=== PATIENT | female | born 1990 | race American Indian/Alaskan Native ===

== ENCOUNTER 2016-11-01 09:41 | Emergency (ER) | payer BC ==
[2016-11-01 10:25] VITALS: TEMP 98.1
[2016-11-01 10:46] LABS: ADD MANUAL DIFF? NO
[2016-11-01 10:50] LABS: BASO # 0.02 K/mm3 (0.0-2.0); BASO % 0.2 % (0.0-3.0); EOS # 0.2 (0.0-0.7); EOS % 2.4 % (1.5-5.0); GRAN # 7.08 (1.4-6.5); GRAN % 73.6 % (50.0-68.0); LYMPH # 1.6 (1.2-3.4); MEAN CELL VOLUME 81.6 fL (80.0-105.0); MEAN CORPUSCULAR HEMOGLOBIN 26.3 pg (25.0-35.0); MEAN CORPUSCULAR HGB CONC 32.3 g/dl (31.0-37.0); MEAN PLATELET VOLUME 9.3 fl (7.0-11.0); MONO # 0.7 (0.1-0.6); MONO % 6.8 % (1.0-6.0); PLATELET COUNT 271 10^3/uL (120.0-450.0); RED CELL DISTRIBUTION WIDTH 15.3 % (11.5-14.5); WHITE BLOOD COUNT 9.6 10^3/ul (4.5-11.0)
[2016-11-01 10:51] LABS: URINE APPEARANCE SL CLOUDY (CLEAR); URINE BILIRUBIN NEGATIVE (NEGATIVE); URINE BLOOD TRACE-INTACT (NEGATIVE); URINE COLOR YELLOW (YELLOW); URINE GLUCOSE (UA) NEGATIVE (NEGATIVE); URINE KETONE TRACE mg/dL (NEGATIVE); URINE LEUKOCYTE ESTERASE MODERATE Leu/uL (NEGATIVE); URINE PROTEIN NEGATIVE mg/dL (<30 mg/dL); URINE UROBILINOGEN 0.2 E.U./dL (<1 E.U./dL)
[2016-11-01 11:00] LABS: ALB/GLOB RATIO 0.9 (1.1-1.8); ALKALINE PHOSPHATASE 59 U/L (38-133); ALT/SGPT 39 U/L (7-56); AST/SGOT 33 U/L (15-39); BILIRUBIN,TOTAL 0.4 mg/dL (0.2-1.3); BLOOD UREA NITROGEN 9 mg/dL (7-21); CALCIUM 9.1 mg/dL (8.4-10.5); CARBON DIOXIDE 22 mmol/L (21-33); CHLORIDE 107 mmol/L (98-107); GFR AFRICAN-AMERICAN > 60; GLUCOSE,RANDOM 102 mg/dL (70-110); POTASSIUM 3.8 mmol/L (3.6-5.0); SODIUM 137 mmol/L (132-148); TOTAL PROTEIN 6.9 g/dL (5.8-8.3)
[2016-11-01 11:11] LABS: URINE RBC 0 - 2 /hpf (0-2)
[2016-11-01 11:12] LABS: URINE BACTERIA FEW (NEG)
[2016-11-01 11:51] VITALS: RESP 18
--- NOTE | 2016-11-01 13:10 | US ---
PROCEDURE: HISTORY: 18 wks preg, vag spotting COMPARISON: TECHNIQUE: FINDINGS: There is a single live intrauterine fetus in anterior placenta with variable presentation. heart motion is observed at 150 beats per minute. biometric measurements demonstrates the BPD measures 18 weeks. Amniotic fluid appears to be within normal limits. IMPRESSION: Single live intrauterine fetus with a mean gestational age of roughly 18 weeks. Recommend anatomic survey in the 2nd trimester.
--- NOTE | 2016-11-01 13:27 | ED PDOC ---
Arrival/HPI - General Chief Complaint: Female Genitourinary Time Seen by Provider: 11/01/16 09:57 Historian: Patient - History of Present Illness Narrative History of Present Illness (Text): 11/01/16 14:41 Patient reports 1 week history of vaginal spotting, with mild lower abdominal crampy pain. Otherwise: (-) N/V, (-) fever, (-) urinary symptoms, (-) prior salpingitis, (+) h/o miscarriage at 7 weeks. Has (+) care and (+) prior OB ultrasound. 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 Para 0 AB 1 OB R Amezquita Past Medical History - Provider Review Nursing Documentation Reviewed: Yes - Infectious Disease Hx of Infectious Diseases: None - Reproductive Menopause: No - Cardiac Hx Cardiac Disorders: No - Pulmonary Hx Respiratory Disorders: No - Neurological Hx Neurological Disorder: No - HEENT Hx HEENT Disorder: No - Renal Hx Renal Disorder: No - Endocrine/Metabolic Hx Endocrine Disorders: No - Hematological/Oncological Hx Blood Disorders: No - Integumentary Hx Dermatological Disorder: No - Musculoskeletal/Rheumatological Hx Musculoskeletal Disorders: No - Gastrointestinal Hx Gastrointestinal Disorders: No - Genitourinary/Gynecological Hx Genitourinary Disorders: No - Psychiatric Hx Psychophysiologic Disorder: No Hx Substance Use: No - Anesthesia Hx Anesthesia: No Family/Social History - Physician Review Nursing Documentation Reviewed: Yes Family/Social History: No Known Family HX Smoking Status: Never Smoked Hx Alcohol Use: No Hx Substance Use: No Allergies/Home Meds Allergies/Adverse Reactions: Allergies No Known Allergies Allergy (Verified 11/01/16 10:27) Review of Systems - Review of Systems Constitutional: Normal. absent: Fatigue, Weight Change Respiratory: Normal. absent: SOB, Cough Cardiovascular: Normal. absent: Chest Pain, Palpitations Gastrointestinal: Normal, Abdominal Pain. absent: Stool Changes Genitourinary Female: Normal. absent: Dysuria, Frequency Musculoskeletal: Normal. absent: Arthralgias, Back Pain Skin: Normal. absent: Rash, Pruritis Physical Exam - Physical Exam Narrative Physical Exam (Text): 11/01/16 14:43 GENERAL APPEARANCE: Patient is awake, alert, oriented x 3, in no acute distress. SKIN: Warm, dry; (-) cyanosis. EYES: (-) conjunctival pallor. ENMT: Mucous membranes moist. NECK: (-) tenderness, (-) stiffness, (-) lymphadenopathy. CHEST AND RESPIRATORY: (-) rales, (-) rhonchi, (-) wheezes; breath sounds equal bilaterally. HEART AND CARDIOVASCULAR: (-) irregularity; (-) murmur, (-) gallop. ABDOMEN AND GI: Soft; (-) tenderness. EXTREMITIES: (-) deformity. NEURO AND PSYCH: Mental status as above; (-) focal findings. Vital Signs Temp Pulse Resp BP Pulse Ox 11/01/16 13:38 75 18 130/70 100 11/01/16 11:51 86 18 123/68 99 11/01/16 10:25 98.1 F 92 H 16 125/72 99 11/01/16 10:11 98.1 F 92 H 18 125/72 99 11/01/16 10:04 98.2 F 86 18 121/68 98 Medical Decision Making ED Course and Treatment: 11/01/16 13:25 26 yo F c/o vaginal spotting with mild lower abd crampy pain. PE otherwise normal. Plan: -- Labs -- Urinalysis -- ED observation / reassess / disposition -- US pelvic OB - Lab Interpretations Lab Results: 11/01/16 10:30 11/01/16 10:30 Lab Results 11/01/16 11:39: Blood Type Confirm B POSITIVE 11/01/16 10:50: Blood Type B POSITIVE, Antibody Screen Negative, BBK History Checked No verified bt 11/01/16 10:30: WBC 9.6, RBC 3.80, Hgb 10.0 L, Hct 31.0 L, MCV 81.6, MCH 26.3, MCHC 32.3, RDW 15.3 H, Plt Count 271, MPV 9.3, Gran % 73.6 H, Lymph % (Auto) 17.0 L, [place] % (Auto) 6.8 H, Eos % (Auto) 2.4, Baso % (Auto) 0.2, Gran # 7.08 H , Lymph # 1.6, [place] # 0.7 H, Eos # 0.2, Baso # 0.02, Sodium 137, Potassium 3.8, Chloride 107, Carbon Dioxide 22, Anion Gap 12, BUN 9, Creatinine 0.5, Est GFR ( Amer) > 60, Est GFR (Non-Af Amer) > 60, Random Glucose 102, Calcium 9.1 , Total Bilirubin 0.4, AST 33, ALT 39, Alkaline Phosphatase 59, Total Protein 6.9, Albumin 3.3, Globulin 3.6, Albumin/Globulin Ratio 0.9 L, Beta HCG, Quant 48068.00 H, Urine Color Yellow, Urine Appearance Sl cloudy, Urine pH 6.0, Ur Specific [place] 1.025, Urine Protein Negative, Urine Glucose (UA) Negative, Urine Ketones Trace H, Urine Blood Trace-intact H, Urine Nitrate Negative, Urine Bilirubin Negative, Urine Urobilinogen 0.2, Ur Leukocyte Esterase Moderate H, Urine RBC 0 - 2, Urine WBC 5 - 10, Ur Epithelial Cells 4 - 5, Urine Bacteria Few I have reviewed the lab results: Yes (Pt noted to have a UTI) - RAD Interpretation Narrative RAD Interpretations (Text): 11/01/16 13:24 US pelvis OB: FINDINGS: There is a single live intrauterine fetus in anterior placenta with variable presentation. heart motion is observed at 150 beats per minute. biometric measurements demonstrates the BPD measures 18 weeks. Amniotic fluid appears to be within normal limits. IMPRESSION: Single live intrauterine fetus with a mean gestational age of roughly 18 weeks. Recommend anatomic survey in the 2nd trimester. Radiology Orders: 11/01/16 10:36 AGE [US] Stat ED OBSERVATION Date of observation admission: 11/01/16 Time of observation admission: 10:35 - Observation admission statement Patient is being placed in observation because:: To obtain US and for reassessment of symptoms. - Goals of Observation Goals of observation are:: To observe patient's signs and symptoms. - Progress Note Progress Note: 11/01/16 12:00 Labs results reviewed and discussed with the patient in great detail. UA shows ( +) UTI. Beta quant and type & screen still pending. US results still pending at this time. Patient has no other complaints. PE is unchanged. 11/01/16 13:27 US pelvic : Single live intrauterine fetus with a mean gestational age of roughly 18 weeks. Recommend anatomic survey in the 2nd trimester. US results reviewed with the patient and with family. On re-evaluation, patient is resting comfortably in bed in no acute distress. Reports no increase in vaginal spotting or abdominal pain. On exam, abdomen remains soft with no tenderness. Based on history, exam and diagnostic results plan will be for outpatient follow up. Patient states she fully agrees with and understands discharge instructions. States that she agrees with the plan and disposition. Verbalized and repeated discharge instructions and plan. I have given the patient opportunity to ask any additional questions. Follow up with OB in 1-2 days without fail. Advised to take medication as prescribed. Return to the emergency room at any time for any new or worsening symptoms. - PA / [employer] / Resident Statement MD/DO has reviewed & agrees with the documentation as recorded. Disposition/Present on Arrival - Present on Arrival Any Indicators Present on Arrival: No History of DVT/PE: No History of Uncontrolled Diabetes: No Urinary Catheter: No History of Decub. Ulcer: No History Surgical Site Infection Following: None - Disposition Have Diagnosis and Disposition been Completed?: Yes Diagnosis: Threatened , UTI (urinary tract infection) Disposition: HOME/ ROUTINE Disposition Time: 10:35 (Patient placed in ED observation) Patient Plan: Discharge Condition: STABLE Discharge Instructions (ExitCare): Threatened Miscarriage (ED), Urinary Tract Infection in Women (ED) Print Language: KINYARWANDA Additional Instructions: Thank you for letting us take care of you today. You were treated for threatened miscarriage, UTI. The emergency medical care you received today was directed at your acute symptoms. If you were prescribed any medication, please fill it and take as directed. It may take several days for your symptoms to resolve. Return to the Emergency Department if your symptoms worsen, do not improve, or if you have any other problems. Please contact your doctor in 2 days for re-evaluation and follow up. Bring any paperwork you were given at discharge with you along with any medications you are taking to your follow up visit. Our treatment cannot replace ongoing medical care by a primary care provider (PCP) outside of the emergency department. Thank you for allowing the [facility] team to be part of your care today. Prescriptions: Nitrofurantoin Macrocrystals [Macrobid] 100 mg PO BID #20 cap Referrals: Doris Amezquita MD [Primary Care Provider] - Follow up with primary
[2016-11-01 13:39] VITALS: BP 130/70; PULSE 75; O2SAT 100
== END 2016-11-01 13:38 | disposition home or self-care (01) ==
LOC: ED 09:41
DX: O20.0 Threatened abortion (principal); O23.41 Unspecified infection of urinary tract in pregnancy, first trimester; Z3A.01 Less than 8 weeks gestation of pregnancy

== ENCOUNTER 2018-03-24 18:12 | Inpatient (IN) | payer BC, OTHER ==
[2018-03-24 18:26] VITALS: BMI 43.3
--- NOTE | 2018-03-24 18:55 | ED PDOC ---
Arrival/HPI - General Chief Complaint: Abdominal Pain Time Seen by Provider: 03/24/18 18:34 Historian: Patient - History of Present Illness Narrative History of Present Illness (Text): 03/24/18 18:55 28 year old female who presents to the Emergency department complaining of abdominal pain. Patient reports having persistent, sharp abdominal pain, which started 1am this morning while she was sleeping. Patient states that initially her abdominal pain was right sided but has since become worse in the epigastric area. Prior to the pain she ate dinner at 19:00. Patient hasn't taken anything for her pain. She has normal bowel movements and denies any blood in her stool. Her last menstrual period ended a week ago. Patient reports that a few moments ago she found small amount of blood in her urine. Patient reports having a slight yellow vaginal discharge which is her norm. She admits to being sexually active within the past 6 months but not the past month. She doesn't think she has been exposed to any STD. of note last year she had a but no other surgeries. Patient denies fevers, chills, cough, shortness of breath, chest pain , dyspnea on exertion, nausea, vomiting, diarrhea, back pain, neck pain, headache, dizziness, or any other complaint. She also denies any recent EtOH ingestion. Time/Duration: Other (Today) Symptom Onset: Sudden Symptom Course: Unchanged Quality: Stabbing Activities at Onset: Sleeping Context: Home Past Medical History - Infectious Disease Hx of Infectious Diseases: None - Cardiac Hx Cardiac Disorders: No Hx Hypertension: No - Pulmonary Hx Respiratory Disorders: No - Neurological Hx Neurological Disorder: No - HEENT Hx HEENT Disorder: No - Renal Hx Renal Disorder: No - Endocrine/Metabolic Hx Endocrine Disorders: No - Hematological/Oncological Hx Blood Disorders: No - Integumentary Hx Dermatological Disorder: No - Musculoskeletal/Rheumatological Hx Musculoskeletal Disorders: No - Gastrointestinal Hx Gastrointestinal Disorders: No - Genitourinary/Gynecological Hx Genitourinary Disorders: No - Psychiatric Hx Depression: No Hx Substance Use: No - Surgical History Hx Section: Yes (x1) - Anesthesia Hx Anesthesia: No Family/Social History Smoking Status: Never Smoked Hx Alcohol Use: No Hx Substance Use: No Allergies/Home Meds Allergies/Adverse Reactions: Allergies banana Allergy (Verified 03/24/18 18:27) ITCHING Home Medications: Home Meds Medication Instructions Recorded Confirmed No Known Home Med 03/24/18 03/24/18 Physical Exam Vital Signs Reviewed: Yes Vital Signs Temp Pulse Resp BP Pulse Ox 03/24/18 21:39 75 18 113/73 97 03/24/18 20:13 78 18 115/75 97 03/24/18 18:29 98.2 F 84 18 117/80 97 Temperature: Afebrile Blood Pressure: Normal Pulse: Regular Respiratory Rate: Normal Appearance: Positive for: Well-Appearing Mental Status: Positive for: Alert and Oriented X 3 - Systems Exam Head: Present: Atraumatic, Normocephalic Pupils: Present: PERRL Extroacular Muscles: Present: EOMI Conjunctiva: Present: Normal Mouth: Present: Moist Mucous Membranes Neck: Present: Normal Range of Motion Respiratory/Chest: Present: Clear to Auscultation, Good Air Exchange. No: Respiratory Distress, Accessory Muscle Use Cardiovascular: Present: Regular Rate and Rhythm, Normal S1, S2. No: Murmurs Abdomen: Present: Tenderness (Epigastric, periumbilical, and RLQ tenderness). No: Distention, Peritoneal Signs Back: Present: Normal Inspection Upper Extremity: Present: Normal Inspection. No: Cyanosis, Edema Lower Extremity: Present: Normal Inspection. No: Edema Neurological: Present: GCS=15, CN II-XII Intact, Speech Normal Skin: Present: Warm, Dry, Normal Color. No: Rashes Psychiatric: Present: Alert, Oriented x 3, Normal Insight, Normal Concentration Medical Decision Making ED Course and Treatment: 03/24/18 18:55 Impression: 28 year old female who presents to the Emergency department complaining of sharp and persistent epigastric abdominal, which started 1am this morning. Differential Diagnosis included but are not limited to: Plan: -- Abdominal and Pelvic CT with IV contrast -- Labs -- Blood work -- Toradol -- Reglan -- Urinalysis -- Reassess and disposition Prior Visits: Notes and results from previous visits were reviewed. Progress Notes: 03/24/18 21:10 CT of abdomen and pelvis showed appendicitis 03/24/18 21:14 Discussed case with certified ophthalmic surgical assistant, who will come to evaluate patient. 03/24/18 22:08 Discussed plan with surgery resident, who will speak to her attending . Requests medical admission. 03/24/18 22:10 Discussed case with , who accepts patient under hospitalist service. - Lab Interpretations Lab Results: 03/24/18 19:18 03/24/18 19:18 Lab Results 03/24/18 19:18: PT 12.7 H, INR 1.11, APTT 23.7 L 03/24/18 19:18: WBC 8.1, RBC 4.12, Hgb 10.0 L, Hct 32.2 L, MCV 78.2 L, MCH 24.3 L, MCHC 31.1, RDW 15.3 H, Plt Count 332, MPV 9.6, Gran % 58.8, Lymph % (Auto) 30.6, [place] % (Auto) 7.2 H, Eos % (Auto) 2.9, Baso % (Auto) 0.5, Gran # 4.75, Lymph # (Auto) 2.5, [place] # (Auto) 0.6, Eos # (Auto) 0.2, Baso # (Auto) 0.04 03/24/18 19:18: Sodium 144, Potassium 3.8, Chloride 109 H, Carbon Dioxide 26, Anion Gap 13, BUN 9, Creatinine 0.6 L, Est GFR ( Amer) > 60, Est GFR (Non -Af Amer) > 60, Random Glucose 94, Calcium 9.1, Total Bilirubin 0.4, AST 18, ALT 16, Alkaline Phosphatase 70, Total Protein 7.4, Albumin 4.0, Globulin 3.4, Albumin/Globulin Ratio 1.2, Lipase 90 03/24/18 18:37: Urine Color Yellow, Urine Appearance Clear, Urine pH 6.0, Ur Specific [place] 1.015, Urine Protein Negative, Urine Glucose (UA) Negative, Urine Ketones Negative, Urine Blood Negative, Urine Nitrate Negative, Urine Bilirubin Negative, Urine Urobilinogen 1.0 H, Ur Leukocyte Esterase Trace H, Urine RBC 0 - 2, Urine WBC 2 - 5, Ur Epithelial Cells 6 - 8, Urine Bacteria Many , Urine Other Uyeast I have reviewed the lab results: Yes - RAD Interpretation Narrative RAD Interpretations (Text): 03/24/18 CT Abdomen and Pelvis With Intravenous Contrast: IMPRESSION: Right lower quadrant findings equivocal for possible early tip appendicitis. Please correlate withpatient's symptoms and laboratory values. Dictated and Authenticated by: North Connor MD Radiology Orders: 03/24/18 19:04 ABDOMEN & PELVIS [ABD & PELVIS IV CONTRAST ONLY] [CT] Stat Solo Musician: Radiologist - Medication Orders Current Medication Orders: Discontinued Medications Metoclopramide HCl 10 mg/ (Sodium Chloride) 52 mls @ 200 mls/hr IV STAT STA Stop: 03/24/18 19:20 Last Admin: 03/24/18 19:32 Dose: Not Given Non-Admin Reason: Patient Refused Ceftriaxone Sodium (Rocephin 1 Gram Ivpb) 1 gm in 100 mls @ 100 mls/hr IVPB STAT STA PRN Reason: Protocol Stop: 03/24/18 21:41 Last Admin: 03/24/18 20:53 Dose: 100 mls/hr eMAR Start Stop Document 03/24/18 20:53 JORGE (Rec: 03/24/18 20:53 JORGE [id number]) Intravenous Solution Start Date 03/24/18 Start Time 20:53 End Date 03/24/18 Ketorolac Tromethamine (Toradol) 30 mg IVP STAT STA Stop: 03/24/18 19:38 Last Admin: 03/24/18 20:04 Dose: 30 mg MAR Pain Assessment Document 03/24/18 20:04 JORGE (Rec: 03/24/18 20:04 JORGE [id number]) Pain Reassessment Is this a pain reassessment? Yes Presence of Pain Presence of Pain Yes Pain Scale Used Pain Scale Used Numeric Location Pain Location Body Site Abdomen Description Intensity of Pain at present 8 IVP Administration Document 03/24/18 20:04 JORGE (Rec: 03/24/18 20:04 JORGE [id number]) Charges for Administration # of IVP Administrations 1 - Scribe Statement The provider has reviewed the documentation as recorded by the Scribadrian Tamez Provider Scribe Attestation: All medical record entries made by the Scribe were at my direction and personally dictated by me. I have reviewed the chart and agree that the record accurately reflects my personal performance of the history, physical exam, medical decision making, and the department course for this patient. I have also personally directed, reviewed, and agree with the discharge instructions and disposition. Disposition/Present on Arrival - Present on Arrival History of DVT/PE: No History of Uncontrolled Diabetes: No Urinary Catheter: No History of Decub. Ulcer: No History Surgical Site Infection Following: None - Disposition Forms: [employer] (Nigerian)
[2018-03-24 19:36] LABS: BASO # 0.04 K/mm3 (0.0-2.0); BASO % 0.5 % (0.0-3.0); EOS # 0.2 (0.0-0.7); EOS % 2.9 % (1.5-5.0); GRAN # 4.75 (1.4-6.5); GRAN % 58.8 % (50.0-68.0); LYMPH # 2.5 (1.2-3.4); LYMPH % 30.6 % (22.0-35.0); MEAN CELL VOLUME 78.2 fl (80.0-105.0); MEAN CORPUSCULAR HEMOGLOBIN 24.3 pg (25.0-35.0); MEAN CORPUSCULAR HGB CONC 31.1 g/dl (31.0-37.0); MEAN PLATELET VOLUME 9.6 fl (7.0-11.0); MONO # 0.6 (0.1-0.6); MONO % 7.2 % (1.0-6.0); RBC 4.12 10^6/uL (3.5-6.1); RED CELL DISTRIBUTION WIDTH 15.3 % (11.5-14.5); WHITE BLOOD COUNT 8.1 10^3/ul (4.5-11.0)
[2018-03-24 19:39] LABS: ALB/GLOB RATIO 1.2 (1.1-1.8); ALT/SGPT 16 U/L (7-56); AST/SGOT 18 U/L (14-36); BLOOD UREA NITROGEN 9 mg/dL (7-21); CALCIUM 9.1 mg/dL (8.4-10.5); GFR NON-AFRICAN AMERICAN > 60; LIPASE 90 U/L (23-300)
[2018-03-24 19:41] LABS: INR 1.11; PARTIAL THROMBOPLASTIN TIME 23.7 Seconds (25.1-36.5); PROTHROMBIN TIME 12.7 SECONDS (9.4-12.5)
[2018-03-24 19:42] LABS: URINE BILIRUBIN NEGATIVE (NEGATIVE); URINE BLOOD NEGATIVE (NEGATIVE); URINE GLUCOSE (UA) NEGATIVE (NEGATIVE); URINE LEUKOCYTE ESTERASE TRACE Leu/uL (NEGATIVE); URINE PROTEIN NEGATIVE mg/dL (<30 mg/dL)
[2018-03-24 19:55] LABS: URINE APPEARANCE CLEAR (CLEAR); URINE COLOR YELLOW (YELLOW)
[2018-03-24 19:57] LABS: URINE BACTERIA MANY (NEG); URINE RBC 0 - 2 /hpf (0-2)
[2018-03-24] MEDS ORDERED: cefTRIAXone 1 gm 1 GM/100 ML BAG IVPB STA (20:42)
--- NOTE | 2018-03-24 22:40 | CP.PCM.CON ---
History of Present Illness - History of Present Illness History of Present Illness: General Surgery Consult Note for Dr. Olivares 28F, no significant past medical history, presents to the ED with sudden onset abdominal pain. Patient was seen and evaluated in the ED. States the pain started last night when it woke her up from her sleep at 1 am. Initially rated as 10/10 dull pain in the lower abdomen. Today pain has progressively sharpened and localized to the periumbilical region. The pain does not radiate. It is constant, currently a 6/10 with pain medication. Lying down alleviates her symptoms. Pressure or palpation in the right lower quadrant aggravates her symptoms. She denies fever, chills, nausea, vomiting, dysuria, chest pain, palpitations, shortness of breath, cough, headache, dizziness. PMH: none PSH: x1 2016 ALL: bananas Soc: Denies tobacco, alcohol, or drug use. Currently sexually active with multiple partners and occasionally uses protection (condoms). No OCP use because did not like the side effects. History of chlamydia in 2010 treated with antibiotics. Review of Systems - Constitutional Constitutional: absent: Chills, Fever, Weight Loss - EENT Eyes: absent: Blurred Vision, Change in Vision Ears: absent: Ear Discharge, Ear Pain Nose/Mouth/Throat: absent: Nasal Congestion, Nasal Discharge - Cardiovascular Cardiovascular: absent: Chest Pain, Dyspnea - Respiratory Respiratory: absent: Cough, Dyspnea - Gastrointestinal Gastrointestinal: Abdominal Pain. absent: Constipation, Nausea, Vomiting - Genitourinary Genitourinary: absent: Difficulty Urinating, Dysuria - Musculoskeletal Musculoskeletal: absent: Back Pain, Neck Pain - Integumentary Integumentary: absent: Bleeding Lesions, Changing Lesions - Neurological Neurological: absent: Confusion, Dizziness, Headaches - Psychiatric Psychiatric: absent: Anxiety, Depression Past Patient History - Infectious Disease Hx of Infectious Diseases: None - Past Social History Smoking Status: Never Smoked - CARDIAC Hx Cardiac Disorders: No Hx Hypertension: No - PULMONARY Hx Respiratory Disorders: No - NEUROLOGICAL Hx Neurological Disorder: No - HEENT Hx HEENT Problems: No - RENAL Hx Chronic Kidney Disease: No - ENDOCRINE/METABOLIC Hx Endocrine Disorders: No - HEMATOLOGICAL/ONCOLOGICAL Hx Blood Disorders: No - INTEGUMENTARY Hx Dermatological Problems: No - MUSCULOSKELETAL/RHEUMATOLOGICAL Hx Musculoskeletal Disorders: No - GASTROINTESTINAL Hx Gastrointestinal Disorders: No - GENITOURINARY/GYNECOLOGICAL Hx Genitourinary Disorders: No - PSYCHIATRIC Hx Depression: No Hx Substance Use: No - SURGICAL HISTORY Hx Section: Yes (x1) - ANESTHESIA Hx Anesthesia: No Meds Allergies/Adverse Reactions: Allergies Allergy/AdvReac Type Severity Reaction Status Date / Time banana Allergy ITCHING Verified 03/24/18 18:27 Physical Exam - Constitutional Appears: Well, Non-toxic, No Acute Distress Additional comments: obese - Head Exam Head Exam: ATRAUMATIC, NORMAL INSPECTION, NORMOCEPHALIC - Eye Exam Eye Exam: EOMI, PERRL - ENT Exam ENT Exam: Mucous Membranes Moist, Normal Exam - Respiratory Exam Respiratory Exam: Clear to Auscultation Bilateral, NORMAL BREATHING PATTERN - Cardiovascular Exam Cardiovascular Exam: REGULAR RHYTHM, +S1, +S2. absent: Systolic Murmur - GI/Abdominal Exam GI & Abdominal Exam: Normal Bowel Sounds, Soft, Tenderness. absent: Distended, Guarding, Rebound - Neurological Exam Neurological exam: Alert, Oriented x3 - Psychiatric Exam Psychiatric exam: Normal Affect, Normal Mood Results - Vital Signs Recent Vital Signs: Last Vital Signs Temp 98.2 F 03/24/18 18:29 Pulse 75 03/24/18 21:39 Resp 18 03/24/18 21:39 BP 113/73 03/24/18 21:39 Pulse Ox 97 03/24/18 21:39 - Labs Result Diagrams: 03/24/18 19:18 03/24/18 19:18 Labs: Laboratory Results - last 24 hr 03/24/18 03/24/18 03/24/18 18:37 19:18 19:18 WBC 8.1 RBC 4.12 Hgb 10.0 L Hct 32.2 L MCV 78.2 L MCH 24.3 L MCHC 31.1 RDW 15.3 H Plt Count 332 MPV 9.6 Gran % 58.8 Lymph % (Auto) 30.6 [place] % (Auto) 7.2 H Eos % (Auto) 2.9 Baso % (Auto) 0.5 Gran # 4.75 Lymph # (Auto) 2.5 [place] # (Auto) 0.6 Eos # (Auto) 0.2 Baso # (Auto) 0.04 PT INR APTT Sodium 144 Potassium 3.8 Chloride 109 H Carbon Dioxide 26 Anion Gap 13 BUN 9 Creatinine 0.6 L Est GFR ( Amer) > 60 Est GFR (Non-Af Amer) > 60 Random Glucose 94 Calcium 9.1 Total Bilirubin 0.4 AST 18 ALT 16 Alkaline Phosphatase 70 Total Protein 7.4 Albumin 4.0 Globulin 3.4 Albumin/Globulin Ratio 1.2 Lipase 90 Urine Color Yellow Urine Appearance Clear Urine pH 6.0 Ur Specific [place] 1.015 Urine Protein Negative Urine Glucose (UA) Negative Urine Ketones Negative Urine Blood Negative Urine Nitrate Negative Urine Bilirubin Negative Urine Urobilinogen 1.0 H Ur Leukocyte Esterase Trace H Urine RBC 0 - 2 Urine WBC 2 - 5 Ur Epithelial Cells 6 - 8 Urine Bacteria Many Urine Other Uyeast 03/24/18 19:18 WBC RBC Hgb Hct MCV MCH MCHC RDW Plt Count MPV Gran % Lymph % (Auto) [place] % (Auto) Eos % (Auto) Baso % (Auto) Gran # Lymph # (Auto) [place] # (Auto) Eos # (Auto) Baso # (Auto) PT 12.7 H INR 1.11 APTT 23.7 L Sodium Potassium Chloride Carbon Dioxide Anion Gap BUN Creatinine Est GFR ( Amer) Est GFR (Non-Af Amer) Random Glucose Calcium Total Bilirubin AST ALT Alkaline Phosphatase Total Protein Albumin Globulin Albumin/Globulin Ratio Lipase Urine Color Urine Appearance Urine pH Ur Specific [place] Urine Protein Urine Glucose (UA) Urine Ketones Urine Blood Urine Nitrate Urine Bilirubin Urine Urobilinogen Ur Leukocyte Esterase Urine RBC Urine WBC Ur Epithelial Cells Urine Bacteria Urine Other Assessment & Plan - Assessment and Plan (Free Text) Assessment: 28F, presents to ED with periumbilical pain. Preliminary CT report states possible early appendicitis. Plan: - IV fluids - IV Antibiotics - NPO - Pain control - Anti-emetics - AM labs - Continue to monitor vital signs - Discussed with Dr. Olivares, further recommendations to follow Supa Mcgarry PGY1
[2018-03-24] MEDS ORDERED: Morphine 2 mg/ml ISec IVP PRN (22:45)
[2018-03-24] MEDS ORDERED: Morphine 4 mg/ml ISec IVP PRN (22:47)
[2018-03-24] MEDS ORDERED: Lactated Ringer's 1,000 ML IV SCH (23:00)
[2018-03-24] MEDS: cefOXitin Sodium 1 GM in Sodium Chloride 0.9% 100 ML IV SCH (23:21)
[2018-03-25 01:41] VITALS: RESP 20
[2018-03-25] MEDS ORDERED: Pneumococcal 23-Valent Vaccine IM ONE (01:41)
--- NOTE | 2018-03-25 02:05 | CP.PCM.HP ---
<Vasile Shkula - Last Filed: 03/25/18 02:24> History of Present Illness - History of Present Illness History of Present Illness: Vasile Shukla, PGY-1, Internal Medicine History and Physical for Dr. Carlos CC: abdominal pain 28 year old female with past medical history of hypoglycemia and chlamydia treated in 2010, presents with lower abdominal pain that started on 03/24 at 1 AM. Patient denies having this kind of pain in the past. The pain is a dull, epigastric pain that is constant and nonradiating. Patient reports pain was 10/ 10 when it started and is now 6/10. Exacerbating factors include pressure. No remitting factors. Patient denies nausea, vomiting, constipation, diarrhea, dysuria, hematuria, chest pain, heart palpitations, shortness of breath, numbness/tingling. LMP: March 20. Regular period with normal flow. Mild cramping with periods. Patient has had 3 sexual partners in the last year. PMH: as stated above PSH: FMHx: father has diabetes. mother has rheumatoid arthritis SHx: denies smoking or recreational drug use. Drinks 3-4 drinks once every few months Medications: denies PMD: denies Pharmacy: [facility] Insurance: denies Review of Systems - Constitutional Constitutional: absent: Anorexia, Chills, Fever - EENT Eyes: absent: Blurred Vision Ears: absent: Ear Pain, Abnormal Hearing - Cardiovascular Cardiovascular: absent: Chest Pain, Dyspnea, Dyspnea on Exertion - Respiratory Respiratory: absent: Cough, Dyspnea - Gastrointestinal Gastrointestinal: Abdominal Pain (epigastric). absent: Constipation, Diarrhea, Nausea, Vomiting - Genitourinary Genitourinary: absent: Dysuria, Hematuria - Reproductive: Female Reproductive:Female: Normal Menses - Menstruation Menstruation: Normal Menses - Musculoskeletal Musculoskeletal: absent: Abnormal Gait, Back Pain - Neurological Neurological: absent: Numbness, Tingling, Weakness - Psychiatric Psychiatric: absent: Anxiety, Depression Past Patient History - Infectious Disease Hx of Infectious Diseases: None - Past Social History Smoking Status: Never Smoked - CARDIAC Hx Cardiac Disorders: No Hx Hypertension: No - PULMONARY Hx Respiratory Disorders: No - NEUROLOGICAL Hx Neurological Disorder: No - HEENT Hx HEENT Problems: No - RENAL Hx Chronic Kidney Disease: No - ENDOCRINE/METABOLIC Hx Endocrine Disorders: No - HEMATOLOGICAL/ONCOLOGICAL Hx Blood Disorders: No - INTEGUMENTARY Hx Dermatological Problems: No - MUSCULOSKELETAL/RHEUMATOLOGICAL Hx Falls: No - GASTROINTESTINAL Hx Gastrointestinal Disorders: No - GENITOURINARY/GYNECOLOGICAL Hx Genitourinary Disorders: No - PSYCHIATRIC Hx Depression: No Hx Substance Use: No - SURGICAL HISTORY Hx Surgeries: Yes Other/Comment: - ANESTHESIA Hx Anesthesia: No Meds Allergies/Adverse Reactions: Allergies Allergy/AdvReac Type Severity Reaction Status Date / Time banana Allergy ITCHING Verified 03/24/18 18:27 Physical Exam - Constitutional Appears: Well, Non-toxic, No Acute Distress - Head Exam Head Exam: ATRAUMATIC, NORMOCEPHALIC - Eye Exam Eye Exam: EOMI, Normal appearance, PERRL Pupil Exam: NORMAL ACCOMODATION, PERRL - ENT Exam ENT Exam: Mucous Membranes Moist, Normal Exam - Neck Exam Neck exam: Positive for: Normal Inspection - Respiratory Exam Respiratory Exam: Clear to Auscultation Bilateral, NORMAL BREATHING PATTERN - Cardiovascular Exam Cardiovascular Exam: REGULAR RHYTHM - GI/Abdominal Exam GI & Abdominal Exam: Normal Bowel Sounds, Soft, Tenderness (epigastric pain. negative rovsing's sign, psoas, and obturator sign) - Extremities Exam Extremities exam: Positive for: normal inspection - Back Exam Back exam: NORMAL INSPECTION - Neurological Exam Neurological exam: Alert, CN II-XII Intact, Normal Gait, Oriented x3, Reflexes Normal - Psychiatric Exam Psychiatric exam: Normal Affect, Normal Mood - Skin Skin Exam: Dry, Intact, Normal Color, Warm Results - Vital Signs Recent Vital Signs: Last Vital Signs Temp 97.5 F L 03/25/18 01:33 Pulse 63 03/25/18 01:33 Resp 20 03/25/18 01:33 BP 123/60 03/25/18 01:33 Pulse Ox 98 03/24/18 22:56 - Labs Result Diagrams: 03/24/18 19:18 03/24/18 19:18 Assessment & Plan - Assessment and Plan (Free Text) Assessment: 28 year old female with past medical history of hypoglycemia and chlamydia treated in 2010, presents with lower abdominal pain that started on 03/24 at 1 AM. The pain is a dull, epigastric pain that is constant and nonradiating. Patient will be admitted for abdominal pain 2/2 to appendicitis vs. ovarian cyst. Plan: Abdominal pain 2/2 to appendicitis vs. ovarian cyst vs. UTI -Abdominal CT with IV contrast: Right lower quadrant findings equivocal for possible early tip appendicitis. The appendix is 6.5 mm proximally, and appears 8mm distally. The appendiceal wall more distally shows increased enhancement and a slightly thickened. There is mild periappendiceal tip inflammatory stranding. -UA: trace leukocyte esterase, many bacteria, 2-5 WBC, yeast present -WBC: 8.1 -Patient afebrile. -SIRS criteria not fulfilled. -Patient started on cefoxitin and flagyl for suspected appendicitis and to cover for UTI. -Acetaminophen 650 RC Q4PRN for fever>100.4 -Lactated ringer at 180 cc/hr -Zofran 4 mg PRN for nausea -Morphine 1 mg Q6PRN for pain -NPO -Surgery, Dr. Olivares, consulted for recommendations. Hyperchloremia -mildly elevated at 109. -Continue to monitor. Elevated PT/PTT -PT: 12.7/PTT:23.7 -LFTs are normal. -Continue to monitor. Microcytic Anemia -Hgb: 10.0 -Iron, ferritin, TIBC, Hgb electrophoresis ordered. -Continue to monitor and treat as necessary. DVT prophylaxis: SCD GI prophylaxis: protonix 40 mg daily Patient case discussed with Dr. Carlos. - Date & Time Date: 03/25/18 Time: 02:10 <Edith Carlos - Last Filed: 03/25/18 03:32> Present on Admission - Present on Admission Any Indicators Present on Admission: No History of DVT/PE: No History of Uncontrolled Diabetes: No Urinary Catheter: No Decubitus Ulcer Present: No History Surgical Site Infection Following: None Results - Vital Signs Recent Vital Signs: Last Vital Signs Temp 97.5 F L 03/25/18 01:33 Pulse 63 03/25/18 01:33 Resp 20 03/25/18 01:33 BP 123/60 03/25/18 01:33 Pulse Ox 98 03/24/18 22:56 - Labs Result Diagrams: 03/24/18 19:18 03/24/18 19:18 Attending/Attestation - Attestation I have personally seen and examined this patient.: Yes I have fully participated in the care of the patient.: Yes I have reviewed all pertinent clinical information: Yes Notes (Text): 03/25/18 03:29 Patient was seen when she was in -, ambulating from rest room to bed, not in acute distress. Medical record was reviewed. Agree with history, physical examination, assessment and plan. 28 year old obese woman comes in with complaints of periumbilical abdominal pain since last night, nausea, vomiting, constant , sharp, pain, no radiation, no history of similar pain, has PMH of epistaxis, seasonal allergies, x1, Chlamydia, UTI x 3, obesity , family history of DM,has possible Appendicitis,will be evaluated by surgery, IV antibiotics, NPO, IV hydration, analgesic, antiemetic,GI,DVT prophylaxis, repeat labs in AM.
[2018-03-25] MEDS: metroNIDAZOLE IV 500 mg/100 ml 500 MG/100 ML BAG IVPB SCH ×2 (05:49→14:22)
[2018-03-25 06:42] LABS: BASO # 0.03 K/mm3 (0.0-2.0); BASO % 0.5 % (0.0-3.0); EOS # 0.2 (0.0-0.7); EOS % 3.6 % (1.5-5.0); GRAN # 2.83 (1.4-6.5); GRAN % 50.7 % (50.0-68.0); HEMOGLOBIN 9.3 g/dL (12.0-16.0); LYMPH # 2.1 (1.2-3.4); LYMPH % 37.1 % (22.0-35.0); MEAN CELL VOLUME 78.2 fl (80.0-105.0); MEAN CORPUSCULAR HEMOGLOBIN 23.8 pg (25.0-35.0); MEAN CORPUSCULAR HGB CONC 30.5 g/dl (31.0-37.0); MEAN PLATELET VOLUME 9.3 fl (7.0-11.0); MONO # 0.5 (0.1-0.6); MONO % 8.1 % (1.0-6.0); RBC 3.9 10^6/uL (3.5-6.1); RED CELL DISTRIBUTION WIDTH 15.6 % (11.5-14.5); WHITE BLOOD COUNT 5.6 10^3/ul (4.5-11.0)
[2018-03-25 06:48] LABS: IRON 43 ug/dL (45-180)
[2018-03-25 06:52] LABS: INR 1.14; PARTIAL THROMBOPLASTIN TIME 25.3 Seconds (25.1-36.5); PROTHROMBIN TIME 13.2 SECONDS (9.4-12.5)
[2018-03-25 06:58] LABS: % IRON SATURATION 14 % (20-55); TOTAL IRON BINDING CAPACITY 319 ug/dL (265-497)
[2018-03-25 07:15] LABS: ALB/GLOB RATIO 1.1 (1.1-1.8); ALBUMIN 3.5 g/dL (3.0-4.8); ALT/SGPT 16 U/L (7-56); AST/SGOT 17 U/L (14-36); BLOOD UREA NITROGEN 8 mg/dL (7-21); CALCIUM 9.1 mg/dL (8.4-10.5); GFR NON-AFRICAN AMERICAN > 60
[2018-03-25 07:44] VITALS: TEMP 98.2
[2018-03-25] MEDS: cefOXitin Sodium 1 GM in Sodium Chloride 0.9% 100 ML IV SCH ×2 (08:00→14:21)
--- NOTE | 2018-03-25 08:08 | CT ---
Date of service: 03/24/2018 PROCEDURE: CT Abdomen and Pelvis with contrast HISTORY: periumbilical and RLQ pain...r/o appy COMPARISON: None. TECHNIQUE: Following the intravenous administration of iodinated contrast material, a CT examination of the abdomen and pelvis performed from the domes of the diaphragms to the symphysis pubis with reformatted datasets provided in axial, sagittal and coronal planes. Oral contrast was not administered as per referring physician request. Contrast dose: Omnipaque 350, 145 cc. Radiation dose: Total exam DLP = 1194.61 mGy-cm. This CT exam was performed using one or more of the following dose reduction techniques: Automated exposure control, adjustment of the mA and/or kV according to patient size, and/or use of iterative reconstruction technique. FINDINGS: LOWER THORAX: Unremarkable. LIVER: Unremarkable. No gross lesion or ductal dilatation. GALLBLADDER AND BILE DUCTS: Unremarkable. PANCREAS: Unremarkable. No gross lesion or ductal dilatation. SPLEEN: Unremarkable. ADRENALS: Unremarkable. No mass. KIDNEYS AND URETERS: Unremarkable. No hydronephrosis. No solid mass. VASCULATURE: Unremarkable. No aortic aneurysm. BOWEL: Unremarkable. No obstruction. No gross mural thickening. APPENDIX: Appendix caliber appears upper limits of normal measuring 8 mm distally and less more proximally with borderline periappendiceal reaction. This is a borderline appendicitis pattern. Clinically correlate further. PERITONEUM: Unremarkable. No free fluid. No free air. LYMPH NODES: Unremarkable. No enlarged lymph nodes. BLADDER: Unremarkable. REPRODUCTIVE: Unremarkable. BONES: No acute fracture. OTHER FINDINGS: None. IMPRESSION: Borderline appendicitis. No CT evidence of rupture. Please see discussion above. Clinically correlate further. Perhaps follow-up abdomen pelvis CT inside of 24 hours may be helpful if clinical evaluation is indeterminate. Concordant preliminary report from [facility], 03/24/2018.
--- NOTE | 2018-03-25 08:15 | CP.PCM.PN ---
Subjective - Date & Time of Evaluation Date of Evaluation: 03/25/18 Time of Evaluation: 07:10 - Subjective Subjective: Surgery Progress Note for Dr. Olivares Pt seen and examined at bedside. States her pain is improving. C/o pain with palpation lateral to umbilicus and in RLQ. Denies fever, chills, chest pain, sob , n/v/d/c, urinary complaints, or other symptoms. No acute events reported. Objective - Vital Signs/Intake and Output Vital Signs (last 24 hours): Temp Pulse Resp BP Pulse Ox 98.2 F 53 L 20 108/61 99 03/25/18 06:00 03/25/18 06:00 03/25/18 06:00 03/25/18 06:00 03/25/18 06:00 - Medications Medications: Current Medications Acetaminophen (Tylenol 650 Mg Supp) 650 mg RC Q4H PRN PRN Reason: Fever >100.4 F Cefoxitin Sodium 1 gm/ Sodium (Chloride) 100 mls @ 100 mls/hr IV Q8H ABRAHAN PRN Reason: Protocol Last Admin: 03/24/18 23:21 Dose: 100 mls/hr Metronidazole (Flagyl) 500 mg in 100 mls @ 100 mls/hr IVPB Q8 ABRAHAN PRN Reason: Protocol Last Admin: 03/25/18 05:49 Dose: 100 mls/hr Lactated Ringer's (Lactated Ringer's) 1,000 mls @ 180 mls/hr IV .[id number] [facility] Last Admin: 03/24/18 23:21 Dose: 180 mls/hr Morphine Sulfate (Morphine) 1 mg IVP Q6 PRN PRN Reason: Pain, moderate (4-7) Ondansetron HCl (Zofran Inj) 4 mg IVP Q6H PRN PRN Reason: Nausea/Vomiting Pantoprazole Sodium (Protonix Inj) 40 mg IVP DAILY ABRAHAN - Labs Labs: 03/25/18 06:00 03/25/18 06:00 PT 13.2 SECONDS (9.4-12.5) H 03/25/18 06:00 INR 1.14 03/25/18 06:00 APTT 25.3 Seconds (25.1-36.5) 03/25/18 06:00 - Constitutional Appears: Non-toxic, No Acute Distress - Head Exam Head Exam: ATRAUMATIC, NORMAL INSPECTION - Eye Exam Eye Exam: EOMI, Normal appearance, PERRL - ENT Exam ENT Exam: Mucous Membranes Moist - Respiratory Exam Respiratory Exam: Clear to Ausculation Bilateral, NORMAL BREATHING PATTERN - Cardiovascular Exam Cardiovascular Exam: REGULAR RHYTHM, +S1, +S2 - GI/Abdominal Exam GI & Abdominal Exam: Soft, Normal Bowel Sounds Additional comments: Tenderness to palpation lateral to umbilicus, RLQ; no rebound tenderness, no guarding - Extremities Exam Extremities Exam: Full ROM, Normal Capillary Refill, Normal Inspection - Back Exam Back Exam: Full ROM, NORMAL INSPECTION - Neurological Exam Neurological Exam: Alert, Awake, CN II-XII Intact, Oriented x3 - Skin Skin Exam: Dry, Intact, Normal Color, Warm Assessment and Plan - Assessment and Plan (Free Text) Assessment: 28 y o female with periumbilical pain, CT report states borderline appendicitis. Appendicitis less likely based on clinical presentation. Plan: Will advance patient to clear liquids this am, monitor PO intake C/w IVF, IV anbx Pain control, anti-emetics No leukocytosis, vitals stable No acute surgical intervention needed at this time Further recommendations as per Dr. Marshall Dunbar, DO PGY-1
[2018-03-25] MEDS ORDERED: Alum-Mag Hydrox-Simethicone Susp (30 mL) PO ONE (09:46)
[2018-03-25 15:14] VITALS: BP 118/77; PULSE 56; O2SAT 100
--- NOTE | 2018-03-25 19:26 | CARD ---
APPROVED REPORT Date of service: 03/24/2018 EKG Measurement Heart [id number] <Conclusion> Sinus bradycardia Nonspecific T wave abnormality Abnormal ECG
--- NOTE | 2018-03-25 20:14 | CP.PCM.DIS ---
<Darryn Byrd - Last Filed: 03/25/18 22:19> Provider - Provider Date of Admission: 03/24/18 22:14 Attending physician: Marleni Amezquita DO Primary care physician: NO PRIMARY CARE PROVIDER Time Spent in preparation of Discharge (in minutes): 45 Diagnosis - Discharge Diagnosis (1) Appendicitis Status: Resolved Priority: Medium (2) Abdominal pain Status: Resolved Priority: Medium Hospital Course - Lab Results Lab Results: Most Recent Lab Values WBC 5.6 10^3/ul (4.5-11.0) D 03/25/18 06:00 RBC 3.90 10^6/uL (3.5-6.1) 03/25/18 06:00 Hgb 9.3 g/dL (12.0-16.0) L 03/25/18 06:00 Hct 30.5 % (36.0-48.0) L 03/25/18 06:00 MCV 78.2 fl (80.0-105.0) L 03/25/18 06:00 MCH 23.8 pg (25.0-35.0) L 03/25/18 06:00 MCHC 30.5 g/dl (31.0-37.0) L 03/25/18 06:00 RDW 15.6 % (11.5-14.5) H 03/25/18 06:00 Plt Count 292 10^3/uL (120.0-450.0) 03/25/18 06:00 MPV 9.3 fl (7.0-11.0) 03/25/18 06:00 Gran % 50.7 % (50.0-68.0) 03/25/18 06:00 Lymph % (Auto) 37.1 % (22.0-35.0) H 03/25/18 06:00 [place] % (Auto) 8.1 % (1.0-6.0) H 03/25/18 06:00 Eos % (Auto) 3.6 % (1.5-5.0) 03/25/18 06:00 Baso % (Auto) 0.5 % (0.0-3.0) 03/25/18 06:00 Gran # 2.83 (1.4-6.5) 03/25/18 06:00 Lymph # (Auto) 2.1 (1.2-3.4) 03/25/18 06:00 [place] # (Auto) 0.5 (0.1-0.6) 03/25/18 06:00 Eos # (Auto) 0.2 (0.0-0.7) 03/25/18 06:00 Baso # (Auto) 0.03 K/mm3 (0.0-2.0) 03/25/18 06:00 Differential Comment See pathology report 03/25/18 06:36 PT 13.2 SECONDS (9.4-12.5) H 03/25/18 06:00 INR 1.14 03/25/18 06:00 APTT 25.3 Seconds (25.1-36.5) 03/25/18 06:00 Sodium 143 mmol/L (132-148) 03/25/18 06:00 Potassium 4.1 mmol/L (3.6-5.0) 03/25/18 06:00 Chloride 110 mmol/L (98-107) H 03/25/18 06:00 Carbon Dioxide 25 mmol/L (21-33) 03/25/18 06:00 Anion Gap 13 (10-20) 03/25/18 06:00 BUN 8 mg/dL (7-21) 03/25/18 06:00 Creatinine 0.6 mg/dl (0.7-1.2) L 03/25/18 06:00 Est GFR ( Amer) > 60 03/25/18 06:00 Est GFR (Non-Af Amer) > 60 03/25/18 06:00 Random Glucose 92 mg/dL (70-110) 03/25/18 06:00 Calcium 9.1 mg/dL (8.4-10.5) 03/25/18 06:00 Phosphorus 3.4 mg/dL (2.5-4.5) 03/25/18 06:00 Magnesium 2.1 mg/dL (1.7-2.2) 03/25/18 06:00 Iron 43 ug/dL (45-180) L 03/25/18 06:00 TIBC 319 ug/dL (265-497) 03/25/18 06:00 % Saturation 14 % (20-55) L 03/25/18 06:00 Ferritin 9.0 ng/mL 03/25/18 06:00 Total Bilirubin 0.4 mg/dL (0.2-1.3) 03/25/18 06:00 AST 17 U/L (14-36) 03/25/18 06:00 ALT 16 U/L (7-56) 03/25/18 06:00 Alkaline Phosphatase 63 U/L (38-126) 03/25/18 06:00 Total Protein 6.7 g/dL (5.8-8.3) 03/25/18 06:00 Albumin 3.5 g/dL (3.0-4.8) 03/25/18 06:00 Globulin 3.2 gm/dL 03/25/18 06:00 Albumin/Globulin Ratio 1.1 (1.1-1.8) 03/25/18 06:00 Lipase 90 U/L (23-300) 03/24/18 19:18 Urine Color Yellow (YELLOW) 03/24/18 18:37 Urine Appearance Clear (CLEAR) 03/24/18 18:37 Urine pH 6.0 (4.7-8.0) 03/24/18 18:37 Ur Specific [place] 1.015 (1.005-1.035) 03/24/18 18:37 Urine Protein Negative mg/dL (<30 mg/dL) 03/24/18 18:37 Urine Glucose (UA) Negative mg/dL (NEGATIVE) 03/24/18 18:37 Urine Ketones Negative mg/dL (NEGATIVE) 03/24/18 18:37 Urine Blood Negative (NEGATIVE) 03/24/18 18:37 Urine Nitrate Negative (NEGATIVE) 03/24/18 18:37 Urine Bilirubin Negative (NEGATIVE) 03/24/18 18:37 Urine Urobilinogen 1.0 E.U./dL (<1 E.U./dL) H 03/24/18 18:37 Ur Leukocyte Esterase Trace Catie/uL (NEGATIVE) H 03/24/18 18:37 Urine RBC 0 - 2 /hpf (0-2) 03/24/18 18:37 Urine WBC 2 - 5 /hpf (0-6) 03/24/18 18:37 Ur Epithelial Cells 6 - 8 /hpf (0-5) 03/24/18 18:37 Urine Bacteria Many (NEG) 03/24/18 18:37 Urine Other Uyeast 03/24/18 18:37 Blood Type B POSITIVE 03/25/18 06:05 Antibody Screen Negative 03/25/18 06:05 BBK History Checked Patient has bt 03/25/18 06:05 - Hospital Course Hospital Course: Ms. Allen is a 28 year old female with PMH of hypoglycemia and chlamydia treated in 2010, who presented with lower abdominal pain that started on 03/24 at 1 AM. Patient denied having this kind of pain in the past. The pain was a dull, epigastric pain that is constant and nonradiating. Patient reported pain was 10/10 when it started and is now 6/10. Exacerbating factors included pressure. No remitting factors. Patient denies nausea, vomiting, constipation, diarrhea, dysuria, hematuria, chest pain, heart palpitations, shortness of breath, numbness/tingling. In the ED, patient was afebrile. She received a CT abd/pelvis that showed inflamation of the tip of the appendix, borderline appendicitis but no evidence of rupture. UA showed trace leukocyte esterase. She was started on cefoxitin and flagyl. Upon admission, pt reported continuation of her abdominal pain. She was given lactated ringers, zofran for nausea, and morphine for pain. General Surgery was consulted and recommended continuation of IV antiobiotics and advancing to clear liquid diet. They did not recommend surgical intervention at the time. Pt was able to tolerate advancing diet, and was discharged with ciprofloxacin, flagyl, and probiotics. She was instructed to follow up with primary care doctor and take prescribed medications. Patient further informed to return to the ED for worsening or newly concerning symptoms.Patient is now medically optimized for discharge. Discharge Exam - Head Exam Head Exam: ATRAUMATIC, NORMOCEPHALIC - Eye Exam Eye Exam: Normal appearance, PERRL - ENT Exam ENT Exam: Mucous Membranes Moist - Respiratory Exam Respiratory Exam: Clear to PA & Lateral. absent: Rales, Rhonchi, Wheezes - Cardiovascular Exam Cardiovascular Exam: REGULAR RHYTHM, +S1, +S2. absent: Gallop, Rubs, Systolic Murmur - GI/Abdominal Exam GI & Abdominal Exam: Normal Bowel Sounds, Soft, Tenderness. absent: Guarding Additional comments: Mild tenderness in the epigastric region - Extremities Exam Extremities exam: normal inspection - Neurological Exam Neurological exam: Alert, Oriented x3 - Psychiatric Exam Psychiatric exam: Normal Affect, Normal Mood - Skin Skin Exam: Dry, Intact, Normal Color, Warm Discharge Plan - Discharge Medications Prescriptions: Ciprofloxacin [Cipro] 500 mg PO BID #10 tab Lactobacillus Acidophilus [Bacid Acidophilus] 1 cap PO DAILY #10 cap metroNIDAZOLE [Flagyl] 500 mg PO Q8H #15 tab - Follow Up Plan Condition: GOOD Disposition: HOME/ ROUTINE Instructions: Urinary Tract Infections in Adults, Appendicitis in Adults, Ciprofloxacin (Systemic), Heart Healthy Diet, Appendicitis, Adult (DC), Metronidazole (Systemic), Lactobacillus Additional Instructions: -Follow up with primary doctor in one week -Please take new medications ciprofloxacin, metronidazole, and lactobacillus. - Return to the nearest emergency room for worsening or newly concerning symptoms Referrals: PCP,NO [Primary Care Provider] - <Curtis Cabral - Last Filed: 03/26/18 14:22> Provider - Provider Date of Admission: 03/24/18 22:14 Attending physician: Marleni Amezquita DO Primary care physician: NO PRIMARY CARE PROVIDER Hospital Course - Lab Results Lab Results: Most Recent Lab Values WBC 5.6 10^3/ul (4.5-11.0) D 03/25/18 06:00 RBC 3.90 10^6/uL (3.5-6.1) 03/25/18 06:00 Hgb 9.3 g/dL (12.0-16.0) L 03/25/18 06:00 Hct 30.5 % (36.0-48.0) L 03/25/18 06:00 MCV 78.2 fl (80.0-105.0) L 03/25/18 06:00 MCH 23.8 pg (25.0-35.0) L 03/25/18 06:00 MCHC 30.5 g/dl (31.0-37.0) L 03/25/18 06:00 RDW 15.6 % (11.5-14.5) H 03/25/18 06:00 Plt Count 292 10^3/uL (120.0-450.0) 03/25/18 06:00 MPV 9.3 fl (7.0-11.0) 03/25/18 06:00 Gran % 50.7 % (50.0-68.0) 03/25/18 06:00 Lymph % (Auto) 37.1 % (22.0-35.0) H 03/25/18 06:00 [place] % (Auto) 8.1 % (1.0-6.0) H 03/25/18 06:00 Eos % (Auto) 3.6 % (1.5-5.0) 03/25/18 06:00 Baso % (Auto) 0.5 % (0.0-3.0) 03/25/18 06:00 Gran # 2.83 (1.4-6.5) 03/25/18 06:00 Lymph # (Auto) 2.1 (1.2-3.4) 03/25/18 06:00 [place] # (Auto) 0.5 (0.1-0.6) 03/25/18 06:00 Eos # (Auto) 0.2 (0.0-0.7) 03/25/18 06:00 Baso # (Auto) 0.03 K/mm3 (0.0-2.0) 03/25/18 06:00 Differential Comment See pathology report 03/25/18 06:36 Hemoglobinopathy Red Blood Count 3.83 Mill/mcL (3.80-5.10) 03/25/18 06:00 Hemoglobinopathy Hct 30.4 % (35.0-45.0) L 03/25/18 06:00 Hemoglobinopathy Hgb 9.4 g/dL (11.7-15.5) L 03/25/18 06:00 Hemoglobinopathy MCV 79.5 fL (80.0-100.0) L 03/25/18 06:00 Hemoglobinopathy MCH 24.5 pg (27.0-33.0) L 03/25/18 06:00 Hemoglobinopathy RDW 15.9 % (11.0-15.0) H 03/25/18 06:00 PT 13.2 SECONDS (9.4-12.5) H 03/25/18 06:00 INR 1.14 03/25/18 06:00 APTT 25.3 Seconds (25.1-36.5) 03/25/18 06:00 Sodium 143 mmol/L (132-148) 03/25/18 06:00 Potassium 4.1 mmol/L (3.6-5.0) 03/25/18 06:00 Chloride 110 mmol/L (98-107) H 03/25/18 06:00 Carbon Dioxide 25 mmol/L (21-33) 03/25/18 06:00 Anion Gap 13 (10-20) 03/25/18 06:00 BUN 8 mg/dL (7-21) 03/25/18 06:00 Creatinine 0.6 mg/dl (0.7-1.2) L 03/25/18 06:00 Est GFR ( Amer) > 60 03/25/18 06:00 Est GFR (Non-Af Amer) > 60 03/25/18 06:00 Random Glucose 92 mg/dL (70-110) 03/25/18 06:00 Calcium 9.1 mg/dL (8.4-10.5) 03/25/18 06:00 Phosphorus 3.4 mg/dL (2.5-4.5) 03/25/18 06:00 Magnesium 2.1 mg/dL (1.7-2.2) 03/25/18 06:00 Iron 43 ug/dL (45-180) L 03/25/18 06:00 TIBC 319 ug/dL (265-497) 03/25/18 06:00 % Saturation 14 % (20-55) L 03/25/18 06:00 Ferritin 9.0 ng/mL 03/25/18 06:00 Total Bilirubin 0.4 mg/dL (0.2-1.3) 03/25/18 06:00 AST 17 U/L (14-36) 03/25/18 06:00 ALT 16 U/L (7-56) 03/25/18 06:00 Alkaline Phosphatase 63 U/L (38-126) 03/25/18 06:00 Total Protein 6.7 g/dL (5.8-8.3) 03/25/18 06:00 Albumin 3.5 g/dL (3.0-4.8) 03/25/18 06:00 Globulin 3.2 gm/dL 03/25/18 06:00 Albumin/Globulin Ratio 1.1 (1.1-1.8) 03/25/18 06:00 Lipase 90 U/L (23-300) 03/24/18 19:18 Urine Color Yellow (YELLOW) 03/24/18 18:37 Urine Appearance Clear (CLEAR) 03/24/18 18:37 Urine pH 6.0 (4.7-8.0) 03/24/18 18:37 Ur Specific [place] 1.015 (1.005-1.035) 03/24/18 18:37 Urine Protein Negative mg/dL (<30 mg/dL) 03/24/18 18:37 Urine Glucose (UA) Negative mg/dL (NEGATIVE) 03/24/18 18:37 Urine Ketones Negative mg/dL (NEGATIVE) 03/24/18 18:37 Urine Blood Negative (NEGATIVE) 03/24/18 18:37 Urine Nitrate Negative (NEGATIVE) 03/24/18 18:37 Urine Bilirubin Negative (NEGATIVE) 03/24/18 18:37 Urine Urobilinogen 1.0 E.U./dL (<1 E.U./dL) H 03/24/18 18:37 Ur Leukocyte Esterase Trace Catie/uL (NEGATIVE) H 03/24/18 18:37 Urine RBC 0 - 2 /hpf (0-2) 03/24/18 18:37 Urine WBC 2 - 5 /hpf (0-6) 03/24/18 18:37 Ur Epithelial Cells 6 - 8 /hpf (0-5) 03/24/18 18:37 Urine Bacteria Many (NEG) 03/24/18 18:37 Urine Other Uyeast 03/24/18 18:37 Blood Type B POSITIVE 03/25/18 06:05 Antibody Screen Negative 03/25/18 06:05 BBK History Checked Patient has bt 03/25/18 06:05 Attending/Attestation - Attestation I have personally seen and examined this patient.: Yes I have fully participated in the care of the patient.: Yes I have reviewed all pertinent clinical information, including history, physical exam and plan: Yes Notes (Text): 03/26/18 14:21 Attending note; Patient is a 28-year-old female admitted with periumbilical and right lower quadrant pain. CT showed borderline appendicitis. Patient was seen by surgery. Currently patient is afebrile and nontoxic. No leukocytosis. Started on clear liquid diet and advance to soft diet. Patient denies any pain, nausea, vomiting. Patient was cleared by surgery. We will discharge with by mouth Cipro and Flagyl. The diagnosis, follow-up plan discussed with patient and patient's mother in detail. Advised to follow-up with PMD of choice or [facility] clinic.
[2018-03-26 00:56] LABS: MCH 24.5 pg (27.0-33.0); MCV 79.5 fL (80.0-100.0)
--- NOTE | 2018-03-26 06:14 | CP.PCM.DIS ---
<Darryn Byrd - Last Filed: 03/26/18 06:12> Provider - Provider Date of Admission: 03/24/18 22:14 Attending physician: Marleni Amezquita DO Primary care physician: NO PRIMARY CARE PROVIDER Time Spent in preparation of Discharge (in minutes): 45 Diagnosis - Discharge Diagnosis (1) Appendicitis Status: Resolved Priority: Medium (2) Abdominal pain Status: Resolved Priority: Medium Hospital Course - Lab Results Lab Results: Most Recent Lab Values WBC 5.6 10^3/ul (4.5-11.0) D 03/25/18 06:00 RBC 3.90 10^6/uL (3.5-6.1) 03/25/18 06:00 Hgb 9.3 g/dL (12.0-16.0) L 03/25/18 06:00 Hct 30.5 % (36.0-48.0) L 03/25/18 06:00 MCV 78.2 fl (80.0-105.0) L 03/25/18 06:00 MCH 23.8 pg (25.0-35.0) L 03/25/18 06:00 MCHC 30.5 g/dl (31.0-37.0) L 03/25/18 06:00 RDW 15.6 % (11.5-14.5) H 03/25/18 06:00 Plt Count 292 10^3/uL (120.0-450.0) 03/25/18 06:00 MPV 9.3 fl (7.0-11.0) 03/25/18 06:00 Gran % 50.7 % (50.0-68.0) 03/25/18 06:00 Lymph % (Auto) 37.1 % (22.0-35.0) H 03/25/18 06:00 [place] % (Auto) 8.1 % (1.0-6.0) H 03/25/18 06:00 Eos % (Auto) 3.6 % (1.5-5.0) 03/25/18 06:00 Baso % (Auto) 0.5 % (0.0-3.0) 03/25/18 06:00 Gran # 2.83 (1.4-6.5) 03/25/18 06:00 Lymph # (Auto) 2.1 (1.2-3.4) 03/25/18 06:00 [place] # (Auto) 0.5 (0.1-0.6) 03/25/18 06:00 Eos # (Auto) 0.2 (0.0-0.7) 03/25/18 06:00 Baso # (Auto) 0.03 K/mm3 (0.0-2.0) 03/25/18 06:00 Differential Comment See pathology report 03/25/18 06:36 Hemoglobinopathy Red Blood Count 3.83 Mill/mcL (3.80-5.10) 03/25/18 06:00 Hemoglobinopathy Hct 30.4 % (35.0-45.0) L 03/25/18 06:00 Hemoglobinopathy Hgb 9.4 g/dL (11.7-15.5) L 03/25/18 06:00 Hemoglobinopathy MCV 79.5 fL (80.0-100.0) L 03/25/18 06:00 Hemoglobinopathy MCH 24.5 pg (27.0-33.0) L 03/25/18 06:00 Hemoglobinopathy RDW 15.9 % (11.0-15.0) H 03/25/18 06:00 PT 13.2 SECONDS (9.4-12.5) H 03/25/18 06:00 INR 1.14 03/25/18 06:00 APTT 25.3 Seconds (25.1-36.5) 03/25/18 06:00 Sodium 143 mmol/L (132-148) 03/25/18 06:00 Potassium 4.1 mmol/L (3.6-5.0) 03/25/18 06:00 Chloride 110 mmol/L (98-107) H 03/25/18 06:00 Carbon Dioxide 25 mmol/L (21-33) 03/25/18 06:00 Anion Gap 13 (10-20) 03/25/18 06:00 BUN 8 mg/dL (7-21) 03/25/18 06:00 Creatinine 0.6 mg/dl (0.7-1.2) L 03/25/18 06:00 Est GFR ( Amer) > 60 03/25/18 06:00 Est GFR (Non-Af Amer) > 60 03/25/18 06:00 Random Glucose 92 mg/dL (70-110) 03/25/18 06:00 Calcium 9.1 mg/dL (8.4-10.5) 03/25/18 06:00 Phosphorus 3.4 mg/dL (2.5-4.5) 03/25/18 06:00 Magnesium 2.1 mg/dL (1.7-2.2) 03/25/18 06:00 Iron 43 ug/dL (45-180) L 03/25/18 06:00 TIBC 319 ug/dL (265-497) 03/25/18 06:00 % Saturation 14 % (20-55) L 03/25/18 06:00 Ferritin 9.0 ng/mL 03/25/18 06:00 Total Bilirubin 0.4 mg/dL (0.2-1.3) 03/25/18 06:00 AST 17 U/L (14-36) 03/25/18 06:00 ALT 16 U/L (7-56) 03/25/18 06:00 Alkaline Phosphatase 63 U/L (38-126) 03/25/18 06:00 Total Protein 6.7 g/dL (5.8-8.3) 03/25/18 06:00 Albumin 3.5 g/dL (3.0-4.8) 03/25/18 06:00 Globulin 3.2 gm/dL 03/25/18 06:00 Albumin/Globulin Ratio 1.1 (1.1-1.8) 03/25/18 06:00 Lipase 90 U/L (23-300) 03/24/18 19:18 Urine Color Yellow (YELLOW) 03/24/18 18:37 Urine Appearance Clear (CLEAR) 03/24/18 18:37 Urine pH 6.0 (4.7-8.0) 03/24/18 18:37 Ur Specific [place] 1.015 (1.005-1.035) 03/24/18 18:37 Urine Protein Negative mg/dL (<30 mg/dL) 03/24/18 18:37 Urine Glucose (UA) Negative mg/dL (NEGATIVE) 03/24/18 18:37 Urine Ketones Negative mg/dL (NEGATIVE) 03/24/18 18:37 Urine Blood Negative (NEGATIVE) 03/24/18 18:37 Urine Nitrate Negative (NEGATIVE) 03/24/18 18:37 Urine Bilirubin Negative (NEGATIVE) 03/24/18 18:37 Urine Urobilinogen 1.0 E.U./dL (<1 E.U./dL) H 03/24/18 18:37 Ur Leukocyte Esterase Trace Catie/uL (NEGATIVE) H 03/24/18 18:37 Urine RBC 0 - 2 /hpf (0-2) 03/24/18 18:37 Urine WBC 2 - 5 /hpf (0-6) 03/24/18 18:37 Ur Epithelial Cells 6 - 8 /hpf (0-5) 03/24/18 18:37 Urine Bacteria Many (NEG) 03/24/18 18:37 Urine Other Uyeast 03/24/18 18:37 Blood Type B POSITIVE 03/25/18 06:05 Antibody Screen Negative 03/25/18 06:05 BBK History Checked Patient has bt 03/25/18 06:05 - Hospital Course Hospital Course: Ms. Allen is a 28 year old female with PMH of hypoglycemia and chlamydia treated in 2010, who presented with lower abdominal pain that started on 03/24 at 1 AM. Patient denied having this kind of pain in the past. The pain was a dull, epigastric pain that is constant and nonradiating. Patient reported pain was 10/10 when it started and is now 6/10. Exacerbating factors included pressure. No remitting factors. Patient denies nausea, vomiting, constipation, diarrhea, dysuria, hematuria, chest pain, heart palpitations, shortness of breath, numbness/tingling. In the ED, patient was afebrile. She received a CT abd/pelvis that showed inflamation of the tip of the appendix, borderline appendicitis but no evidence of rupture. UA showed trace leukocyte esterase. She was started on cefoxitin and flagyl. Upon admission, pt reported continuation of her abdominal pain. She was given lactated ringers, zofran for nausea, and morphine for pain. General Surgery was consulted and recommended continuation of IV antiobiotics and advancing to clear liquid diet. They did not recommend surgical intervention at the time. Pt was able to tolerate advancing diet, and was discharged with ciprofloxacin, flagyl, and probiotics. She was instructed to follow up with primary care doctor and take prescribed medications. Patient further informed to return to the ED for worsening or newly concerning symptoms.Patient is now medically optimized for discharge. - Date & Time of H&P Date of H&P: 03/25/18 Time of H&P: 20:00 Discharge Exam - Head Exam Head Exam: ATRAUMATIC, NORMOCEPHALIC - Additional Findings Additional findings: - Head Exam Head Exam: ATRAUMATIC, NORMOCEPHALIC - Eye Exam Eye Exam: Normal appearance, PERRL - ENT Exam ENT Exam: Mucous Membranes Moist - Respiratory Exam Respiratory Exam: Clear to PA & Lateral. absent: Rales, Rhonchi, Wheezes - Cardiovascular Exam Cardiovascular Exam: REGULAR RHYTHM, +S1, +S2. absent: Gallop, Rubs, Systolic Murmur - GI/Abdominal Exam GI & Abdominal Exam: Normal Bowel Sounds, Soft, Tenderness. absent: Guarding Additional comments: Mild tenderness in the epigastric region - Extremities Exam Extremities exam: normal inspection - Neurological Exam Neurological exam: Alert, Oriented x3 - Psychiatric Exam Psychiatric exam: Normal Affect, Normal Mood - Skin Skin Exam: Dry, Intact, Normal Color, Warm Discharge Plan - Discharge Medications Prescriptions: Ciprofloxacin [Cipro] 500 mg PO BID #10 tab Lactobacillus Acidophilus [Bacid Acidophilus] 1 cap PO DAILY #10 cap metroNIDAZOLE [Flagyl] 500 mg PO Q8H #15 tab - Follow Up Plan Condition: GOOD Disposition: HOME/ ROUTINE Instructions: Urinary Tract Infections in Adults, Appendicitis in Adults, Ciprofloxacin (Systemic), Heart Healthy Diet, Appendicitis, Adult (DC), Metronidazole (Systemic), Lactobacillus Additional Instructions: -Follow up with primary doctor in one week -Please take new medications ciprofloxacin, metronidazole, and lactobacillus. - Return to the nearest emergency room for worsening or newly concerning symptoms Referrals: PCP,KACY [Primary Care Provider] - <Curtis Cabral - Last Filed: 03/26/18 14:20> Provider - Provider Date of Admission: 03/24/18 22:14 Attending physician: Marleni Amezquita DO Primary care physician: NO PRIMARY CARE PROVIDER Hospital Course - Lab Results Lab Results: Most Recent Lab Values WBC 5.6 10^3/ul (4.5-11.0) D 03/25/18 06:00 RBC 3.90 10^6/uL (3.5-6.1) 03/25/18 06:00 Hgb 9.3 g/dL (12.0-16.0) L 03/25/18 06:00 Hct 30.5 % (36.0-48.0) L 03/25/18 06:00 MCV 78.2 fl (80.0-105.0) L 03/25/18 06:00 MCH 23.8 pg (25.0-35.0) L 03/25/18 06:00 MCHC 30.5 g/dl (31.0-37.0) L 03/25/18 06:00 RDW 15.6 % (11.5-14.5) H 03/25/18 06:00 Plt Count 292 10^3/uL (120.0-450.0) 03/25/18 06:00 MPV 9.3 fl (7.0-11.0) 03/25/18 06:00 Gran % 50.7 % (50.0-68.0) 03/25/18 06:00 Lymph % (Auto) 37.1 % (22.0-35.0) H 03/25/18 06:00 [place] % (Auto) 8.1 % (1.0-6.0) H 03/25/18 06:00 Eos % (Auto) 3.6 % (1.5-5.0) 03/25/18 06:00 Baso % (Auto) 0.5 % (0.0-3.0) 03/25/18 06:00 Gran # 2.83 (1.4-6.5) 03/25/18 06:00 Lymph # (Auto) 2.1 (1.2-3.4) 03/25/18 06:00 [place] # (Auto) 0.5 (0.1-0.6) 03/25/18 06:00 Eos # (Auto) 0.2 (0.0-0.7) 03/25/18 06:00 Baso # (Auto) 0.03 K/mm3 (0.0-2.0) 03/25/18 06:00 Differential Comment See pathology report 03/25/18 06:36 Hemoglobinopathy Red Blood Count 3.83 Mill/mcL (3.80-5.10) 03/25/18 06:00 Hemoglobinopathy Hct 30.4 % (35.0-45.0) L 03/25/18 06:00 Hemoglobinopathy Hgb 9.4 g/dL (11.7-15.5) L 03/25/18 06:00 Hemoglobinopathy MCV 79.5 fL (80.0-100.0) L 03/25/18 06:00 Hemoglobinopathy MCH 24.5 pg (27.0-33.0) L 03/25/18 06:00 Hemoglobinopathy RDW 15.9 % (11.0-15.0) H 03/25/18 06:00 PT 13.2 SECONDS (9.4-12.5) H 03/25/18 06:00 INR 1.14 03/25/18 06:00 APTT 25.3 Seconds (25.1-36.5) 03/25/18 06:00 Sodium 143 mmol/L (132-148) 03/25/18 06:00 Potassium 4.1 mmol/L (3.6-5.0) 03/25/18 06:00 Chloride 110 mmol/L (98-107) H 03/25/18 06:00 Carbon Dioxide 25 mmol/L (21-33) 03/25/18 06:00 Anion Gap 13 (10-20) 03/25/18 06:00 BUN 8 mg/dL (7-21) 03/25/18 06:00 Creatinine 0.6 mg/dl (0.7-1.2) L 03/25/18 06:00 Est GFR ( Amer) > 60 03/25/18 06:00 Est GFR (Non-Af Amer) > 60 03/25/18 06:00 Random Glucose 92 mg/dL (70-110) 03/25/18 06:00 Calcium 9.1 mg/dL (8.4-10.5) 03/25/18 06:00 Phosphorus 3.4 mg/dL (2.5-4.5) 03/25/18 06:00 Magnesium 2.1 mg/dL (1.7-2.2) 03/25/18 06:00 Iron 43 ug/dL (45-180) L 03/25/18 06:00 TIBC 319 ug/dL (265-497) 03/25/18 06:00 % Saturation 14 % (20-55) L 03/25/18 06:00 Ferritin 9.0 ng/mL 08/23/18 06:00 Total Bilirubin 0.4 mg/dL (0.2-1.3) 03/25/18 06:00 AST 17 U/L (14-36) 03/25/18 06:00 ALT 16 U/L (7-56) 03/25/18 06:00 Alkaline Phosphatase 63 U/L (38-126) 03/25/18 06:00 Total Protein 6.7 g/dL (5.8-8.3) 03/25/18 06:00 Albumin 3.5 g/dL (3.0-4.8) 03/25/18 06:00 Globulin 3.2 gm/dL 03/25/18 06:00 Albumin/Globulin Ratio 1.1 (1.1-1.8) 03/25/18 06:00 Lipase 90 U/L (23-300) 03/24/18 19:18 Urine Color Yellow (YELLOW) 03/24/18 18:37 Urine Appearance Clear (CLEAR) 03/24/18 18:37 Urine pH 6.0 (4.7-8.0) 03/24/18 18:37 Ur Specific [place] 1.015 (1.005-1.035) 03/24/18 18:37 Urine Protein Negative mg/dL (<30 mg/dL) 03/24/18 18:37 Urine Glucose (UA) Negative mg/dL (NEGATIVE) 03/24/18 18:37 Urine Ketones Negative mg/dL (NEGATIVE) 03/24/18 18:37 Urine Blood Negative (NEGATIVE) 03/24/18 18:37 Urine Nitrate Negative (NEGATIVE) 03/24/18 18:37 Urine Bilirubin Negative (NEGATIVE) 03/24/18 18:37 Urine Urobilinogen 1.0 E.U./dL (<1 E.U./dL) H 03/24/18 18:37 Ur Leukocyte Esterase Trace Catie/uL (NEGATIVE) H 03/24/18 18:37 Urine RBC 0 - 2 /hpf (0-2) 03/24/18 18:37 Urine WBC 2 - 5 /hpf (0-6) 03/24/18 18:37 Ur Epithelial Cells 6 - 8 /hpf (0-5) 03/24/18 18:37 Urine Bacteria Many (NEG) 03/24/18 18:37 Urine Other Uyeast 08/22/18 18:37 Blood Type B POSITIVE 03/25/18 06:05 Antibody Screen Negative 03/25/18 06:05 BBK History Checked Patient has bt 03/25/18 06:05 Attending/Attestation - Attestation I have personally seen and examined this patient.: Yes I have fully participated in the care of the patient.: Yes I have reviewed all pertinent clinical information, including history, physical exam and plan: Yes Notes (Text): 03/26/18 14:19 Attending note; Patient is a 28-year-old female admitted with periumbilical and right lower quadrant pain. CT showed borderline appendicitis. Patient was seen by surgery. Currently patient is afebrile and nontoxic. No leukocytosis. Started on clear liquid diet and advance to soft diet. Patient denies any pain, nausea, vomiting. Patient was cleared by surgery. We will discharge with by mouth Cipro and Flagyl. Advised to follow-up with PMD of choice or [facility]. 03/26/18 14:20
[2018-03-27 01:19] LABS: HEMOGLOBIN A2 4.1 Percent (1.8-3.5); HEMOGLOBIN S 31.9 Percent (0.0-0.0)
== END 2018-03-25 21:54 | disposition home or self-care (01) | DRG 188 ==
LOC: ED 18:12 → ERH 22:14 → 5RNO 23:03
PROVIDERS: ADMIT Hospitalist; ATTEND Hospitalist
DX: K37 Unspecified appendicitis (principal); E87.8 Other disorders of electrolyte and fluid balance, not elsewhere classified; R10.31 Right lower quadrant pain; D50.9 Iron deficiency anemia, unspecified; Z83.3 Family history of diabetes mellitus; Z82.61 Family history of arthritis